=== PATIENT | male | born 1985 | race Caucasian/White ===

== ENCOUNTER 2022-12-13 06:17 | Day surgery (SDC) | payer BC ==
[2022-12-10 12:50] VITALS: BMI 39.0
[~2022-12-13 06:17] MED LIST: SODIUM CHLORIDE 0.9% 1,000 ML IV SCH
[2022-12-13 06:46] VITALS: BP 131/71; PULSE 84; RESP 18; TEMP 98.1
--- NOTE | 2022-12-14 09:09 | P.EPPROC ---
- EP Procedure Note Electrophysiology Procedure Note: Diagnosis Recurrent presyncope Twelve-lead EKG shows sinus mechanism normal UT narrow QRS incomplete right bundle branch block pattern Normal ST segments normal QT interval Tilt table test protocol Baseline blood pressure 132/80 mmHg Baseline heart rate 79 beats a minute Patient was tilted upright at an angle of 70 per protocol No significant change in blood pressure No significant change in heart rate Asymptomatic Impression Normal. EKG No significant abnormalities noted with upright tilting
== END 2022-12-13 08:20 | disposition home or self-care (01) ==
LOC: CATHEP 06:17
PROVIDERS: ATTEND Internal Medicine Clinical Cardiac Electrophysiology
DX: I45.10 Unspecified right bundle-branch block (principal); I10 Essential (primary) hypertension; E78.5 Hyperlipidemia, unspecified; G47.33 Obstructive sleep apnea (adult) (pediatric); F17.210 Nicotine dependence, cigarettes, uncomplicated; Z79.899 Other long term (current) drug therapy
CPT/HCPCS: 93660